=== PATIENT | male | born 1935 | race Caucasian/White ===

== ENCOUNTER 2018-11-09 13:18 | Inpatient (IN) ==
[2018-11-09 14:45] LABS: Basophils % 0.5 % (0.0-0.8); Eosinophils # 0.2 10*3/uL (0.0-0.87); Eosinophils % 1.8 % (0.00-10.9); Hematocrit 37.4 VOL% (42.0-52.0); Hemoglobin 12.4 GM/DL (14.0-18.0); Immature Granulocytes % 0.7 %; Immature Granulocytes Absolute 0.06 #; Lymphocytes # 2.1 10*3/uL (1.4-4.0); Lymphocytes % 24.1 % (21.2-54.2); Mean Corpuscular HGB Conc 33.2 GM/DL (32-36); Mean Corpuscular Hemoglobin 30 PG (27-34); Mean Corpuscular Volume 91.4 FL (87-102); Mean Platelet Volume 9.3 FL (9.6-12.0); Monocytes # 0.7 10*3/uL (0.11-0.8); Monocytes % 7.4 % (1.7-12.7); Neutrophils # 5.8 10*3/uL (1.4-7.4); Neutrophils % 65.5 % (38.7-73.9); Platelet Count 228 T/CUMM (130-400); Red Blood Count 4.09 MC/CUMM (3.8-5.5); Red Cell Distribution Width 13.5 % (9.3-17.3); White Blood Count 8.8 T/CUMM (4-12)
[2018-11-09 15:02] LABS: Calcium 8.5 MG/DL (8.5-10.1); Potassium 3.4 MMOL/L (3.5-5.1)
[2018-11-09] MEDS ORDERED: metroNIDAZOLE 500 MG TABLET PO STA (15:44)
[2018-11-09] MEDS ORDERED: ACETAMINOPHEN 325 MG TABLET PO PRN (17:33)
[2018-11-09] MEDS ORDERED: ONDANSETRON 4 MG/2 ML VIAL IV PRN (17:33)
[2018-11-09] MEDS: SODIUM CHLORIDE 0.9% 1,000 ML IV SCH (18:08)
[2018-11-09] MEDS: DOCUSATE SODIUM 100 MG CAPSULE PO SCH (21:14)
[2018-11-10] MEDS: SODIUM CHLORIDE 0.9% 1,000 ML IV SCH ×3 (01:23→18:06)
[2018-11-10 08:34] LABS: Calcium 7.8 MG/DL (8.5-10.1); Osmolality,Calculated 286.8 MOS/KG (273-304); Potassium 2.9 MMOL/L (3.5-5.1)
[2018-11-10] MEDS ORDERED: POTASSIUM CHLORIDE 20 MEQ TABLET PO ONE (08:56)
[2018-11-10] MEDS: DOCUSATE SODIUM 100 MG CAPSULE PO SCH ×2 (10:06→21:40)
[2018-11-10] MEDS: PANTOPRAZOLE 40 MG TABLET PO SCH (10:06)
[2018-11-11 05:26] LABS: Calcium 7.8 MG/DL (8.5-10.1); Osmolality,Calculated 286.7 MOS/KG (273-304); Potassium 3.2 MMOL/L (3.5-5.1)
[2018-11-11] MEDS: SODIUM CHLORIDE 0.9% 1,000 ML IV SCH ×3 (05:38→18:01)
[2018-11-11] MEDS: POTASSIUM CHLORIDE 20 MEQ TABLET PO SCH ×2 (10:20→20:45)
[2018-11-11] MEDS: DOCUSATE SODIUM 100 MG CAPSULE PO SCH ×2 (10:21→20:48)
[2018-11-11] MEDS: PANTOPRAZOLE 40 MG TABLET PO SCH (10:21)
[2018-11-11] MEDS: FLUDROCORTISONE 0.1 MG TABLET PO SCH ×2 (14:54→20:45)
[2018-11-11] MEDS: VANCOMYCIN 50 MG/ML 60 ML/BOTTLE PO SCH ×2 (14:55→18:02)
[2018-11-12] MEDS: VANCOMYCIN 50 MG/ML 60 ML/BOTTLE PO SCH ×4 (00:23→17:06)
[2018-11-12] MEDS: SODIUM CHLORIDE 0.9% 1,000 ML IV SCH (02:08)
[2018-11-12] MEDS: FLUDROCORTISONE 0.1 MG TABLET PO SCH ×3 (09:02→21:22)
[2018-11-12] MEDS: ASPIRIN EC 81 MG TABLET PO SCH (09:02)
[2018-11-12] MEDS: DUTASTERIDE 0.5 MG CAPSULE PO SCH (09:03)
[2018-11-12] MEDS: MIDODRINE 5 MG TABLET PO SCH ×3 (09:03→21:27)
[2018-11-12] MEDS: DOCUSATE SODIUM 100 MG CAPSULE PO SCH ×2 (09:03→21:22)
[2018-11-12] MEDS: POTASSIUM CHLORIDE 20 MEQ TABLET PO SCH ×2 (09:03→21:23)
[2018-11-12] MEDS: PANTOPRAZOLE 40 MG TABLET PO SCH (09:03)
[2018-11-12] MEDS: SODIUM CHLOR 0.9% KCL 20 MEQ 20 MEQ/1,000 ML BAG IV SCH ×2 (09:03→17:10)
[2018-11-12 11:41] LABS: Apearance,Urine CLEAR (Clear); Bilirubin,Urine Negative (Negative); Blood, Urine Negative (Negative); Glucose,Urine (UA) Negative (Negative); Hyaline Casts,Urine 3 /LPF (0-3); Ketones,Urine Negative (Negative); Mucus,Urine Few /LPF (Occasional); Nitrite,Urine Negative (Negative); Protein,Urine Negative; RBC,Urine <1 /HPF (0-4); Squamous Epithelial Cell,Urine Occasional /HPF (0-10); Urine Color Yellow (Yellow); Urine Specific Gravity 1.012 (1.001-1.035); Urine Urobilinogen < 2.0 EU/DL (0.2-1.0); WBC,Urine <1 /HPF (0-6)
[2018-11-13] MEDS: SODIUM CHLOR 0.9% KCL 20 MEQ 20 MEQ/1,000 ML BAG IV SCH ×2 (00:39→09:08)
[2018-11-13] MEDS: VANCOMYCIN 50 MG/ML 60 ML/BOTTLE PO SCH ×2 (00:43→05:25)
[2018-11-13 04:52] LABS: Basophils % 0.5 % (0.0-0.8); Eosinophils # 0.4 10*3/uL (0.0-0.87); Eosinophils % 5.3 % (0.00-10.9); Hematocrit 36.2 VOL% (42.0-52.0); Immature Granulocytes % 0.8 %; Immature Granulocytes Absolute 0.06 #; Lymphocytes # 2.2 10*3/uL (1.4-4.0); Lymphocytes % 27.9 % (21.2-54.2); Mean Corpuscular HGB Conc 33.1 GM/DL (32-36); Mean Corpuscular Hemoglobin 30 PG (27-34); Mean Platelet Volume 9.3 FL (9.6-12.0); Monocytes # 0.6 10*3/uL (0.11-0.8); Monocytes % 7.5 % (1.7-12.7); Neutrophils # 4.5 10*3/uL (1.4-7.4); Platelet Count 223 T/CUMM (130-400); Red Blood Count 4.02 MC/CUMM (3.8-5.5); Red Cell Distribution Width 13.2 % (9.3-17.3); White Blood Count 7.7 T/CUMM (4-12)
[2018-11-13 05:30] LABS: Albumin 2.6 G/DL (3.4-5.0); Bilirubin,Total 1.3 MG/DL (0.2-1.0); Potassium 3.5 MMOL/L (3.5-5.1); Total Protein 5.2 G/DL (6.4-8.3)
[2018-11-13 08:12] VITALS: BP 91/49
[2018-11-13] MEDS: FLUDROCORTISONE 0.1 MG TABLET PO SCH (09:14)
[2018-11-13] MEDS: ASPIRIN EC 81 MG TABLET PO SCH (09:14)
[2018-11-13] MEDS: DOCUSATE SODIUM 100 MG CAPSULE PO SCH (09:14)
[2018-11-13] MEDS: DUTASTERIDE 0.5 MG CAPSULE PO SCH (09:14)
[2018-11-13] MEDS: POTASSIUM CHLORIDE 20 MEQ TABLET PO SCH (09:15)
[2018-11-13] MEDS: PANTOPRAZOLE 40 MG TABLET PO SCH (09:15)
[2018-11-13] MEDS: MIDODRINE 5 MG TABLET PO SCH (09:15)
== END 2018-11-13 10:44 | disposition home health service (06) | DRG 373 ==
LOC: EDUNIT# → EDBD → N.ED 13:18 → N.EDINP 15:44 → N.2E 17:24
PROVIDERS: ADMIT Family Medicine; ATTEND Family Medicine

== ENCOUNTER 2019-01-01 15:54 | Inpatient (IN) ==
[2019-01-01] MEDS ORDERED: ALUM/MAG/SIMETH/LIDO VISC 1:1 30 ML BOTTLE PO ONE (16:11)
[2019-01-01] MEDS ORDERED: PANTOPRAZOLE 40 MG VIAL IV STA (16:16)
[2019-01-01] MEDS ORDERED: ONDANSETRON 4 MG/2 ML VIAL IV STA (16:16)
[2019-01-01 16:33] LABS: Basophils % 0.4 % (0.0-0.8); Eosinophils # 0.1 10*3/uL (0.0-0.87); Eosinophils % 1.3 % (0.00-10.9); Hematocrit 39.7 VOL% (42.0-52.0); Hemoglobin 13.2 GM/DL (14.0-18.0); Immature Granulocytes % 0.5 %; Immature Granulocytes Absolute 0.05 #; Lymphocytes % 21.8 % (21.2-54.2); Mean Corpuscular HGB Conc 33.2 GM/DL (32-36); Mean Corpuscular Volume 88.8 FL (87-102); Mean Platelet Volume 8.7 FL (9.6-12.0); Monocytes % 6.4 % (1.7-12.7); Neutrophils % 69.6 % (38.7-73.9); Platelet Count 242 T/CUMM (130-400); Red Blood Count 4.47 MC/CUMM (3.8-5.5); Red Cell Distribution Width 13.4 % (9.3-17.3); White Blood Count 9.1 T/CUMM (4-12)
[2019-01-01 16:52] LABS: Partial Thromboplastin Time 24.7 SECS (0-40)
[2019-01-01 16:59] LABS: Alanine Aminotransferase 15 U/L (16-61); Albumin 3.1 G/DL (3.4-5.0); Alkaline Phosphatase 188 U/L (45-117); Aspartate Amino Transferase 20 U/L (0-37); Blood Urea Nitrogen 17 MG/DL (7-18); Calcium 8.6 MG/DL (8.5-10.1); Free T4 (Free Thyroxine) 1.16 NG/DL (0.76-1.46); Glucose 93 MG/DL (74-106); Osmolality,Calculated 280.4 MOS/KG (273-304); Total Protein 5.9 G/DL (6.4-8.3); Troponin I < 0.015 NG/ML (0.00-0.045)
[2019-01-01] MEDS ORDERED: POTASSIUM BICARB EFFERVESCENT 25 MEQ TABLET PO ONE (17:35)
[2019-01-01] MEDS ORDERED: ONDANSETRON 4 MG/2 ML VIAL IV PRN (18:47)
[2019-01-01] MEDS ORDERED: DUTASTERIDE 0.5 MG CAPSULE PO SCH (21:00)
[2019-01-01] MEDS: MIDODRINE 5 MG TABLET PO SCH (21:46)
[2019-01-01] MEDS: CARBIDOPA/LEVODOPA 25-100 MG TABLET PO SCH (21:46)
[2019-01-01] MEDS: FLUDROCORTISONE 0.1 MG TABLET PO SCH (21:46)
[2019-01-02] MEDS: VANCOMYCIN 50 MG/ML 60 ML/BOTTLE PO SCH ×4 (00:10→17:28)
[2019-01-02 07:28] LABS: Amorphous Crystals,Urine Few /HPF (Few); Apearance,Urine CLEAR (Clear); Bacteria,Urine Occasional /HPF (Few); Bilirubin,Urine Negative (Negative); Blood, Urine Negative (Negative); Glucose,Urine (UA) Negative (Negative); Hyaline Casts,Urine 5 /LPF (0-3); Ketones,Urine 5 mg/dL (Negative); Mucus,Urine Many /LPF (Occasional); Nitrite,Urine Negative (Negative); Protein,Urine Negative; RBC,Urine 1 /HPF (0-4); Squamous Epithelial Cell,Urine Occasional /HPF (0-10); Urine Color Yellow (Yellow); Urine Specific Gravity 1.017 (1.001-1.035); WBC,Urine 4 /HPF (0-6)
[2019-01-02 07:31] LABS: Barbiturates Screen,Urine Negative (Negative); Benzodiazepines Screen,Urine Negative (Negative); Cannabinoid Screen,Urine Negative (Negative); Opiate Screen,Urine Negative (Negative); Phencyclidine Screen,Urine Negative (Negative)
[2019-01-02] MEDS: CARBIDOPA/LEVODOPA 25-100 MG TABLET PO SCH ×3 (08:46→20:48)
[2019-01-02] MEDS: MIDODRINE 5 MG TABLET PO SCH ×4 (08:46→20:48)
[2019-01-02] MEDS: MAGNESIUM OXIDE 400 MG TABLET PO SCH ×2 (08:46→20:48)
[2019-01-02] MEDS: FLUDROCORTISONE 0.1 MG TABLET PO SCH ×3 (08:46→20:47)
[2019-01-02] MEDS: ASPIRIN EC 81 MG TABLET PO SCH (08:46)
[2019-01-02] MEDS: POTASSIUM CHLORIDE 20 MEQ TABLET PO SCH ×2 (08:46→20:48)
[2019-01-02] MEDS: PANTOPRAZOLE 40 MG TABLET PO SCH (08:46)
[2019-01-03] MEDS: VANCOMYCIN 50 MG/ML 60 ML/BOTTLE PO SCH ×4 (00:40→17:53)
[2019-01-03 02:24] LABS: Basophils % 0.3 % (0.0-0.8); Eosinophils # 0.2 10*3/uL (0.0-0.87); Eosinophils % 1.4 % (0.00-10.9); Hematocrit 35.8 VOL% (42.0-52.0); Hemoglobin 12.1 GM/DL (14.0-18.0); Immature Granulocytes % 0.6 %; Immature Granulocytes Absolute 0.06 #; Lymphocytes % 18.2 % (21.2-54.2); Mean Corpuscular HGB Conc 33.8 GM/DL (32-36); Mean Corpuscular Volume 88.6 FL (87-102); Mean Platelet Volume 9.1 FL (9.6-12.0); Monocytes % 6.8 % (1.7-12.7); Neutrophils % 72.7 % (38.7-73.9); Platelet Count 223 T/CUMM (130-400); Red Blood Count 4.04 MC/CUMM (3.8-5.5); Red Cell Distribution Width 13.6 % (9.3-17.3); White Blood Count 10.9 T/CUMM (4-12)
[2019-01-03 02:50] LABS: Calcium 7.9 MG/DL (8.5-10.1); Osmolality,Calculated 282.4 MOS/KG (273-304)
[2019-01-03] MEDS: ASPIRIN EC 81 MG TABLET PO SCH (09:36)
[2019-01-03] MEDS: FLUDROCORTISONE 0.1 MG TABLET PO SCH ×3 (09:36→23:39)
[2019-01-03] MEDS: POTASSIUM CHLORIDE 20 MEQ TABLET PO SCH ×2 (09:37→23:39)
[2019-01-03] MEDS: MAGNESIUM OXIDE 400 MG TABLET PO SCH ×2 (09:37→23:40)
[2019-01-03] MEDS: POTASSIUM CHLORIDE RIDER 10 MEQ in PREMIX 1 EACH IV PRN ×5 (09:37→17:54)
[2019-01-03] MEDS: PANTOPRAZOLE 40 MG TABLET PO SCH (09:37)
[2019-01-03] MEDS: CARBIDOPA/LEVODOPA 25-100 MG TABLET PO SCH ×3 (09:37→23:41)
[2019-01-03] MEDS: MIDODRINE 5 MG TABLET PO SCH ×4 (09:38→23:41)
[2019-01-04] MEDS: VANCOMYCIN 50 MG/ML 60 ML/BOTTLE PO SCH ×3 (01:16→13:02)
[2019-01-04 04:39] LABS: Basophils # 0.1 10*3/uL (0.0-0.2); Basophils % 0.6 % (0.0-0.8); Eosinophils # 0.2 10*3/uL (0.0-0.87); Eosinophils % 2.6 % (0.00-10.9); Hematocrit 36.5 VOL% (42.0-52.0); Hemoglobin 12.1 GM/DL (14.0-18.0); Immature Granulocytes % 0.6 %; Immature Granulocytes Absolute 0.05 #; Lymphocytes # 1.9 10*3/uL (1.4-4.0); Lymphocytes % 22.6 % (21.2-54.2); Mean Corpuscular HGB Conc 33.2 GM/DL (32-36); Mean Corpuscular Volume 90.3 FL (87-102); Monocytes % 6.8 % (1.7-12.7); Neutrophils % 66.8 % (38.7-73.9); Platelet Count 207 T/CUMM (130-400); Red Blood Count 4.04 MC/CUMM (3.8-5.5); Red Cell Distribution Width 13.5 % (9.3-17.3); White Blood Count 8.4 T/CUMM (4-12)
[2019-01-04 04:59] LABS: Osmolality,Calculated 283.1 MOS/KG (273-304)
[2019-01-04] MEDS: POTASSIUM CHLORIDE RIDER 10 MEQ in PREMIX 1 EACH IV PRN (06:30)
[2019-01-04 08:54] VITALS: BP 109/67
[2019-01-04] MEDS: POTASSIUM CHLORIDE 20 MEQ TABLET PO SCH (09:14)
[2019-01-04] MEDS: MAGNESIUM OXIDE 400 MG TABLET PO SCH (09:14)
[2019-01-04] MEDS: MIDODRINE 5 MG TABLET PO SCH (09:15)
[2019-01-04] MEDS: FLUDROCORTISONE 0.1 MG TABLET PO SCH (09:15)
[2019-01-04] MEDS: CARBIDOPA/LEVODOPA 25-100 MG TABLET PO SCH (10:14)
[2019-01-04] MEDS: ASPIRIN EC 81 MG TABLET PO SCH (10:14)
[2019-01-04] MEDS: PANTOPRAZOLE 40 MG TABLET PO SCH (10:15)
== END 2019-01-04 12:04 | disposition home or self-care (01) | DRG 57 ==
LOC: EDBD → EDUNIT# → N.ED 15:54 → N.EDINP 18:47 → N.TELEN 19:24
PROVIDERS: ADMIT Family Medicine; ATTEND Family Medicine

== ENCOUNTER 2019-01-28 11:28 | Inpatient (IN) ==
[2019-01-28] MEDS ORDERED: SODIUM CHLORIDE 0.9% 500 ML IV STA (12:09)
[2019-01-28 14:08] LABS: Basophils % 0.4 % (0.0-0.8); Eosinophils # 0.2 10*3/uL (0.0-0.87); Eosinophils % 1.6 % (0.00-10.9); Hematocrit 36.5 VOL% (42.0-52.0); Hemoglobin 11.9 GM/DL (14.0-18.0); Immature Granulocytes % 0.9 %; Immature Granulocytes Absolute 0.08 #; Lymphocytes # 2.2 10*3/uL (1.4-4.0); Lymphocytes % 23.7 % (21.2-54.2); Mean Corpuscular HGB Conc 32.6 GM/DL (32-36); Mean Platelet Volume 8.9 FL (9.6-12.0); Monocytes % 6.5 % (1.7-12.7); Neutrophils % 66.9 % (38.7-73.9); Platelet Count 240 T/CUMM (130-400); Red Blood Count 4.01 MC/CUMM (3.8-5.5); Red Cell Distribution Width 13.6 % (9.3-17.3); White Blood Count 9.4 T/CUMM (4-12)
[2019-01-28 14:30] LABS: Alanine Aminotransferase < 9 U/L (16-61); Albumin 2.7 G/DL (3.4-5.0); Alkaline Phosphatase 121 U/L (45-117); Aspartate Amino Transferase 11 U/L (0-37); Blood Urea Nitrogen 17 MG/DL (7-18); Calcium 8.3 MG/DL (8.5-10.1); Glucose 85 MG/DL (74-106); Osmolality,Calculated 277.5 MOS/KG (273-304)
[2019-01-28 14:45] LABS: Apearance,Urine Slightly Hazy (Clear); Bacteria,Urine Occasional /HPF (Few); Bilirubin,Urine Negative (Negative); Blood, Urine Negative (Negative); Glucose,Urine (UA) Negative (Negative); Hyaline Casts,Urine 4 /LPF (0-3); Ketones,Urine Negative (Negative); Mucus,Urine Occasional /LPF (Occasional); Nitrite,Urine Negative (Negative); Protein,Urine Negative; RBC,Urine 6 /HPF (0-4); Squamous Epithelial Cell,Urine Occasional /HPF (0-10); Urine Color Amber (Yellow); Urine Specific Gravity 1.014 (1.001-1.035); Urine Urobilinogen < 2.0 EU/DL (0.2-1.0); WBC,Urine 24 /HPF (0-6)
[2019-01-28] MEDS ORDERED: cefTRIAXone 1,000 MG in SODIUM CHLORIDE 0.9% 100 ML IV STA (15:13)
[2019-01-28] MEDS ORDERED: MORPHINE 4 MG/1 ML VIAL IV PRN (16:47)
[2019-01-28] MEDS ORDERED: ACETAMINOPHEN 325 MG TABLET PO PRN (16:47)
[2019-01-28] MEDS ORDERED: ONDANSETRON 4 MG/2 ML VIAL IV PRN (16:47)
[2019-01-28] MEDS: SODIUM CHLORIDE 0.9% 1,000 ML IV SCH (16:56)
[2019-01-28] MEDS: DOCUSATE SODIUM 100 MG CAPSULE PO SCH (20:45)
[2019-01-29 02:00] LABS: Apearance,Urine Slightly Hazy (Clear); Bacteria,Urine Occasional /HPF (Few); Bilirubin,Urine Negative (Negative); Blood, Urine Small mg/dL (Negative); Glucose,Urine (UA) Negative (Negative); Hyaline Casts,Urine 4 /LPF (0-3); Ketones,Urine Negative (Negative); Mucus,Urine Few /LPF (Occasional); Nitrite,Urine Positive (Negative); Protein,Urine Negative; RBC,Urine 8 /HPF (0-4); Squamous Epithelial Cell,Urine Occasional /HPF (0-10); Urine Color Yellow (Yellow); Urine Specific Gravity 1.014 (1.001-1.035); Urine Urobilinogen < 2.0 EU/DL (0.2-1.0); WBC,Urine 149 /HPF (0-6)
[2019-01-29 04:37] LABS: Basophils # 0.1 10*3/uL (0.0-0.2); Basophils % 0.8 % (0.0-0.8); Eosinophils # 0.2 10*3/uL (0.0-0.87); Eosinophils % 1.9 % (0.00-10.9); Hematocrit 34.3 VOL% (42.0-52.0); Hemoglobin 11.4 GM/DL (14.0-18.0); Immature Granulocytes % 0.8 %; Immature Granulocytes Absolute 0.06 #; Lymphocytes # 2.1 10*3/uL (1.4-4.0); Lymphocytes % 26.8 % (21.2-54.2); Mean Corpuscular HGB Conc 33.2 GM/DL (32-36); Mean Corpuscular Volume 90.5 FL (87-102); Mean Platelet Volume 9.1 FL (9.6-12.0); Neutrophils % 63.7 % (38.7-73.9); Platelet Count 215 T/CUMM (130-400); Red Blood Count 3.79 MC/CUMM (3.8-5.5); Red Cell Distribution Width 13.8 % (9.3-17.3)
[2019-01-29 04:56] LABS: Albumin 2.5 G/DL (3.4-5.0); Bilirubin,Total 0.9 MG/DL (0.2-1.0); Calcium 8.2 MG/DL (8.5-10.1); Osmolality,Calculated 278.4 MOS/KG (273-304); Risk Ratio 4.52; VLDL CHOLESTEROL 20.8 MG/DL
[2019-01-29] MEDS: SODIUM CHLORIDE 0.9% 1,000 ML IV SCH ×2 (05:49→19:23)
[2019-01-29] MEDS ORDERED: CARBIDOPA/LEVODOPA 25-100 MG TABLET PO SCH (09:00)
[2019-01-29] MEDS: FLUDROCORTISONE 0.1 MG TABLET PO SCH (09:56)
[2019-01-29] MEDS: MIDODRINE 5 MG TABLET PO SCH ×3 (09:56→21:24)
[2019-01-29] MEDS: DUTASTERIDE 0.5 MG CAPSULE PO SCH (09:56)
[2019-01-29] MEDS: CARBIDOPA/LEVODOPA 25-100 MG TABLET PO SCH ×4 (09:57→20:47)
[2019-01-29] MEDS: cefTRIAXone 1,000 MG in SYRINGE 1 EACH IV SCH (09:57)
[2019-01-29] MEDS: PANTOPRAZOLE 40 MG TABLET PO SCH (09:57)
[2019-01-29] MEDS: DOCUSATE SODIUM 100 MG CAPSULE PO SCH ×2 (09:57→20:47)
[2019-01-29] MEDS: ZINC OXIDE PASTE 113 GM TUBE TOP SCH ×2 (18:07→20:47)
[2019-01-29] MEDS: POTASSIUM CHLORIDE 20 MEQ TABLET PO SCH (20:47)
[2019-01-30 05:30] LABS: Basophils % 0.4 % (0.0-0.8); Eosinophils # 0.2 10*3/uL (0.0-0.87); Eosinophils % 2.6 % (0.00-10.9); Hematocrit 34.7 VOL% (42.0-52.0); Hemoglobin 11.3 GM/DL (14.0-18.0); Immature Granulocytes % 0.7 %; Immature Granulocytes Absolute 0.05 #; Lymphocytes % 26.8 % (21.2-54.2); Mean Corpuscular HGB Conc 32.6 GM/DL (32-36); Mean Corpuscular Volume 90.4 FL (87-102); Monocytes % 6.3 % (1.7-12.7); Neutrophils % 63.2 % (38.7-73.9); Platelet Count 233 T/CUMM (130-400); Red Blood Count 3.84 MC/CUMM (3.8-5.5); Red Cell Distribution Width 13.9 % (9.3-17.3); White Blood Count 7.4 T/CUMM (4-12)
[2019-01-30 06:02] LABS: Osmolality,Calculated 276.4 MOS/KG (273-304)
[2019-01-30 06:07] LABS: Alanine Aminotransferase < 6 U/L (16-61); Albumin 2.4 G/DL (3.4-5.0); Alkaline Phosphatase 110 U/L (45-117); Aspartate Amino Transferase 13 U/L (0-37); Blood Urea Nitrogen 10 MG/DL (7-18); Glucose 81 MG/DL (74-106); Osmolality,Calculated 276.4 MOS/KG (273-304); Total Protein 4.9 G/DL (6.4-8.3)
[2019-01-30] MEDS: cefTRIAXone 1,000 MG in SYRINGE 1 EACH IV SCH (08:41)
[2019-01-30] MEDS: DOCUSATE SODIUM 100 MG CAPSULE PO SCH ×2 (08:43→22:37)
[2019-01-30] MEDS: FLUDROCORTISONE 0.1 MG TABLET PO SCH (08:44)
[2019-01-30] MEDS: MIDODRINE 5 MG TABLET PO SCH ×3 (08:44→22:37)
[2019-01-30] MEDS: POTASSIUM CHLORIDE 20 MEQ TABLET PO SCH ×2 (08:44→22:37)
[2019-01-30] MEDS: CARBIDOPA/LEVODOPA 25-100 MG TABLET PO SCH ×4 (08:45→22:38)
[2019-01-30] MEDS: ASPIRIN EC 81 MG TABLET PO SCH (08:45)
[2019-01-30] MEDS: DUTASTERIDE 0.5 MG CAPSULE PO SCH (08:45)
[2019-01-30] MEDS: PANTOPRAZOLE 40 MG TABLET PO SCH (08:46)
[2019-01-30] MEDS: SODIUM CHLORIDE 0.9% 1,000 ML IV SCH ×2 (09:01→22:39)
[2019-01-30] MEDS: ZINC OXIDE PASTE 113 GM TUBE TOP SCH ×2 (15:35→22:39)
[2019-01-31 04:31] LABS: Basophils % 0.5 % (0.0-0.8); Eosinophils # 0.2 10*3/uL (0.0-0.87); Eosinophils % 2.5 % (0.00-10.9); Hematocrit 36.8 VOL% (42.0-52.0); Hemoglobin 12.1 GM/DL (14.0-18.0); Immature Granulocytes % 0.6 %; Immature Granulocytes Absolute 0.05 #; Lymphocytes % 22.4 % (21.2-54.2); Mean Corpuscular HGB Conc 32.9 GM/DL (32-36); Mean Corpuscular Volume 90.4 FL (87-102); Mean Platelet Volume 8.9 FL (9.6-12.0); Monocytes % 5.2 % (1.7-12.7); Neutrophils % 68.8 % (38.7-73.9); Platelet Count 245 T/CUMM (130-400); Red Blood Count 4.07 MC/CUMM (3.8-5.5); Red Cell Distribution Width 13.7 % (9.3-17.3); White Blood Count 8.9 T/CUMM (4-12)
[2019-01-31] MEDS ORDERED: LACTATED RINGERS 1,000 ML IV SCH (08:00)
[2019-01-31] MEDS ORDERED: LIDOCAINE 2% 5 ML VIAL ONE (10:00)
[2019-01-31] MEDS ORDERED: PROPOFOL 200 MG/20 ML VIAL IV ONE (10:00)
[2019-01-31] MEDS: cefTRIAXone 1,000 MG in SYRINGE 1 EACH IV SCH (12:06)
[2019-01-31] MEDS: ZINC OXIDE PASTE 113 GM TUBE TOP SCH ×2 (12:06→23:05)
[2019-01-31] MEDS: PANTOPRAZOLE 40 MG TABLET PO SCH (13:12)
[2019-01-31] MEDS: DOCUSATE SODIUM 100 MG CAPSULE PO SCH ×2 (13:12→23:05)
[2019-01-31] MEDS: DUTASTERIDE 0.5 MG CAPSULE PO SCH (13:12)
[2019-01-31] MEDS: FLUDROCORTISONE 0.1 MG TABLET PO SCH (13:12)
[2019-01-31] MEDS: POTASSIUM CHLORIDE 20 MEQ TABLET PO SCH ×2 (13:12→23:05)
[2019-01-31] MEDS: ASPIRIN EC 81 MG TABLET PO SCH (13:12)
[2019-01-31] MEDS: MIDODRINE 5 MG TABLET PO SCH ×3 (13:12→23:04)
[2019-01-31] MEDS: CARBIDOPA/LEVODOPA 25-100 MG TABLET PO SCH ×4 (13:13→23:05)
[2019-02-01 05:49] LABS: Basophils # 0.1 10*3/uL (0.0-0.2); Basophils % 0.5 % (0.0-0.8); Eosinophils # 0.2 10*3/uL (0.0-0.87); Eosinophils % 1.9 % (0.00-10.9); Hematocrit 38.1 VOL% (42.0-52.0); Hemoglobin 12.5 GM/DL (14.0-18.0); Immature Granulocytes % 0.5 %; Immature Granulocytes Absolute 0.05 #; Lymphocytes # 1.8 10*3/uL (1.4-4.0); Lymphocytes % 18.4 % (21.2-54.2); Mean Corpuscular HGB Conc 32.8 GM/DL (32-36); Mean Corpuscular Volume 90.7 FL (87-102); Mean Platelet Volume 8.8 FL (9.6-12.0); Monocytes % 4.2 % (1.7-12.7); Neutrophils % 74.5 % (38.7-73.9); Platelet Count 243 T/CUMM (130-400); Red Cell Distribution Width 13.8 % (9.3-17.3); White Blood Count 9.6 T/CUMM (4-12)
[2019-02-01 06:16] LABS: Alanine Aminotransferase < 6 U/L (16-61); Albumin 2.6 G/DL (3.4-5.0); Alkaline Phosphatase 131 U/L (45-117); Aspartate Amino Transferase 16 U/L (0-37); Blood Urea Nitrogen 8 MG/DL (7-18); Calcium 8.3 MG/DL (8.5-10.1); Glucose 78 MG/DL (74-106); Osmolality,Calculated 271.7 MOS/KG (273-304); Total Protein 5.4 G/DL (6.4-8.3)
[2019-02-01] MEDS: POTASSIUM CHLORIDE 20 MEQ TABLET PO SCH ×2 (09:30→20:58)
[2019-02-01] MEDS: FLUDROCORTISONE 0.1 MG TABLET PO SCH (09:30)
[2019-02-01] MEDS: PANTOPRAZOLE 40 MG TABLET PO SCH (09:30)
[2019-02-01] MEDS: MIDODRINE 5 MG TABLET PO SCH ×3 (09:31→20:58)
[2019-02-01] MEDS: DOCUSATE SODIUM 100 MG CAPSULE PO SCH ×2 (09:31→20:58)
[2019-02-01] MEDS: DUTASTERIDE 0.5 MG CAPSULE PO SCH (09:31)
[2019-02-01] MEDS: CARBIDOPA/LEVODOPA 25-100 MG TABLET PO SCH ×4 (09:31→20:58)
[2019-02-01] MEDS: cefTRIAXone 1,000 MG in SYRINGE 1 EACH IV SCH (09:31)
[2019-02-01] MEDS: ASPIRIN EC 81 MG TABLET PO SCH (09:31)
[2019-02-01] MEDS: ZINC OXIDE PASTE 113 GM TUBE TOP SCH ×2 (17:05→21:08)
[2019-02-02] MEDS: SODIUM CHLORIDE 0.9% 1,000 ML IV SCH ×3 (03:45→14:07)
[2019-02-02 06:15] LABS: Basophils % 0.4 % (0.0-0.8); Eosinophils # 0.2 10*3/uL (0.0-0.87); Eosinophils % 1.9 % (0.00-10.9); Hematocrit 34.2 VOL% (42.0-52.0); Hemoglobin 11.1 GM/DL (14.0-18.0); Immature Granulocytes % 0.6 %; Immature Granulocytes Absolute 0.05 #; Lymphocytes # 1.7 10*3/uL (1.4-4.0); Lymphocytes % 19.3 % (21.2-54.2); Mean Corpuscular HGB Conc 32.5 GM/DL (32-36); Mean Platelet Volume 9.1 FL (9.6-12.0); Monocytes % 4.9 % (1.7-12.7); Neutrophils % 72.9 % (38.7-73.9); Platelet Count 257 T/CUMM (130-400); Red Blood Count 3.76 MC/CUMM (3.8-5.5)
[2019-02-02 06:26] LABS: Alanine Aminotransferase < 9 U/L (16-61); Albumin 2.3 G/DL (3.4-5.0); Alkaline Phosphatase 112 U/L (45-117); Aspartate Amino Transferase 16 U/L (0-37); Blood Urea Nitrogen 10 MG/DL (7-18); Calcium 7.9 MG/DL (8.5-10.1); Glucose 73 MG/DL (74-106); Osmolality,Calculated 272.7 MOS/KG (273-304); Total Protein 4.8 G/DL (6.4-8.3)
[2019-02-02] MEDS: DOCUSATE SODIUM 100 MG CAPSULE PO SCH ×2 (10:11→21:16)
[2019-02-02] MEDS: MIDODRINE 5 MG TABLET PO SCH ×3 (10:11→21:16)
[2019-02-02] MEDS: PANTOPRAZOLE 40 MG TABLET PO SCH (10:11)
[2019-02-02] MEDS: ASPIRIN EC 81 MG TABLET PO SCH (10:11)
[2019-02-02] MEDS: POTASSIUM CHLORIDE 20 MEQ TABLET PO SCH ×2 (10:11→21:16)
[2019-02-02] MEDS: DUTASTERIDE 0.5 MG CAPSULE PO SCH (10:11)
[2019-02-02] MEDS: FLUDROCORTISONE 0.1 MG TABLET PO SCH (10:11)
[2019-02-02] MEDS: ZINC OXIDE PASTE 113 GM TUBE TOP SCH ×2 (10:12→21:19)
[2019-02-02] MEDS: cefTRIAXone 1,000 MG in SYRINGE 1 EACH IV SCH (10:12)
[2019-02-02] MEDS: CARBIDOPA/LEVODOPA 25-100 MG TABLET PO SCH ×4 (10:12→21:16)
[2019-02-03 02:25] LABS: Basophils % 0.4 % (0.0-0.8); Eosinophils # 0.2 10*3/uL (0.0-0.87); Eosinophils % 2.6 % (0.00-10.9); Hematocrit 34.8 VOL% (42.0-52.0); Hemoglobin 11.5 GM/DL (14.0-18.0); Immature Granulocytes % 0.8 %; Immature Granulocytes Absolute 0.06 #; Lymphocytes # 1.9 10*3/uL (1.4-4.0); Mean Corpuscular Volume 90.2 FL (87-102); Mean Platelet Volume 9.2 FL (9.6-12.0); Monocytes % 6.8 % (1.7-12.7); Neutrophils % 64.4 % (38.7-73.9); Platelet Count 260 T/CUMM (130-400); Red Blood Count 3.86 MC/CUMM (3.8-5.5); Red Cell Distribution Width 14.1 % (9.3-17.3); White Blood Count 7.8 T/CUMM (4-12)
[2019-02-03] MEDS: SODIUM CHLORIDE 0.9% 1,000 ML IV SCH (03:30)
[2019-02-03] MEDS: cefTRIAXone 1,000 MG in SYRINGE 1 EACH IV SCH (08:21)
[2019-02-03] MEDS: DUTASTERIDE 0.5 MG CAPSULE PO SCH (08:22)
[2019-02-03] MEDS: FLUDROCORTISONE 0.1 MG TABLET PO SCH (08:22)
[2019-02-03] MEDS: POTASSIUM CHLORIDE 20 MEQ TABLET PO SCH (08:22)
[2019-02-03] MEDS: MIDODRINE 5 MG TABLET PO SCH (08:22)
[2019-02-03] MEDS: DOCUSATE SODIUM 100 MG CAPSULE PO SCH (08:23)
[2019-02-03] MEDS: CARBIDOPA/LEVODOPA 25-100 MG TABLET PO SCH (08:23)
[2019-02-03] MEDS: PANTOPRAZOLE 40 MG TABLET PO SCH (08:23)
[2019-02-03] MEDS: ASPIRIN EC 81 MG TABLET PO SCH (08:23)
[2019-02-03 08:44] VITALS: BP 91/58
[2019-02-03] MEDS: ZINC OXIDE PASTE 113 GM TUBE TOP SCH (09:37)
== END 2019-02-03 10:45 | disposition home or self-care (01) | DRG 57 ==
LOC: EDBD → EDUNIT# → N.ED 11:28 → N.EDINP 15:17 → N.2E 16:45
PROVIDERS: ADMIT Family Medicine; ATTEND Family Medicine

== ENCOUNTER 2019-03-19 19:46 | Inpatient (IN) ==
[2019-03-19] MEDS ORDERED: SODIUM CHLORIDE 0.9% 1,000 ML IV STA (20:36)
[2019-03-19 20:47] LABS: Basophils % 0.2 % (0.0-0.8); Eosinophils # 0.1 10*3/uL (0.0-0.87); Eosinophils % 1.5 % (0.00-10.9); Hematocrit 28.8 VOL% (42.0-52.0); Hemoglobin 9.7 GM/DL (14.0-18.0); Immature Granulocytes % 0.8 %; Immature Granulocytes Absolute 0.05 #; Lymphocytes # 1.1 10*3/uL (1.4-4.0); Mean Corpuscular HGB Conc 33.7 GM/DL (32-36); Mean Corpuscular Volume 86.5 FL (87-102); Mean Platelet Volume 8.9 FL (9.6-12.0); Neutrophils % 74.5 % (38.7-73.9); Platelet Count 169 T/CUMM (130-400); Red Blood Count 3.33 MC/CUMM (3.8-5.5); Red Cell Distribution Width 14.4 % (9.3-17.3); White Blood Count 6.5 T/CUMM (4-12)
[2019-03-19 20:49] LABS: INR 1.1; PT Patient Result 11.6 SECS
[2019-03-19 21:01] LABS: Alanine Aminotransferase 15 U/L (16-61); Albumin 2.1 G/DL (3.4-5.0); Alkaline Phosphatase 114 U/L (45-117); Aspartate Amino Transferase 24 U/L (0-37); Blood Urea Nitrogen 16 MG/DL (7-18); Calcium 7.6 MG/DL (8.5-10.1); Glucose 76 MG/DL (74-106); Osmolality,Calculated 272.8 MOS/KG (273-304); Total Protein 4.8 G/DL (6.4-8.3); Troponin I < 0.015 NG/ML (0.00-0.045)
[2019-03-19 21:06] LABS: Platelet Estimate Adequate
[2019-03-19] MEDS ORDERED: POTASSIUM BICARB EFFERVESCENT 25 MEQ TABLET PO ONE (21:24)
[2019-03-20 00:39] LABS: Apearance,Urine CLEAR (Clear); Bilirubin,Urine Negative (Negative); Blood, Urine Negative (Negative); Glucose,Urine (UA) Negative (Negative); Ketones,Urine 20 mg/dL (Negative); Mucus,Urine Many /LPF (Occasional); Nitrite,Urine Negative (Negative); Protein,Urine Negative; RBC,Urine 8 /HPF (0-4); Urine Color Amber (Yellow); Urine Specific Gravity 1.018 (1.001-1.035); WBC,Urine 6 /HPF (0-6)
[2019-03-20] MEDS ORDERED: ONDANSETRON 4 MG/2 ML VIAL IV PRN (01:04)
[2019-03-20] MEDS ORDERED: SODIUM CHLORIDE 0.9% 1,000 ML IV SCH (01:04)
[2019-03-20] MEDS ORDERED: ACETAMINOPHEN 325 MG TABLET PO PRN (01:04)
[2019-03-20] MEDS ORDERED: LACTULOSE 20 GM/30 ML UDCUP PO PRN (01:04)
[2019-03-20 06:02] LABS: Basophils % 0.2 % (0.0-0.8); Eosinophils % 0.6 % (0.00-10.9); Hematocrit 27.3 VOL% (42.0-52.0); Hemoglobin 9.1 GM/DL (14.0-18.0); Immature Granulocytes % 0.6 %; Immature Granulocytes Absolute 0.04 #; Lymphocytes # 1.2 10*3/uL (1.4-4.0); Lymphocytes % 18.9 % (21.2-54.2); Mean Corpuscular HGB Conc 33.3 GM/DL (32-36); Mean Corpuscular Volume 87.2 FL (87-102); Mean Platelet Volume 8.5 FL (9.6-12.0); Neutrophils % 73.7 % (38.7-73.9); Platelet Count 144 T/CUMM (130-400); Red Blood Count 3.13 MC/CUMM (3.8-5.5); Red Cell Distribution Width 14.6 % (9.3-17.3); White Blood Count 6.3 T/CUMM (4-12)
[2019-03-20 06:32] LABS: Bilirubin,Total 2.1 MG/DL (0.2-1.0); Calcium 7.8 MG/DL (8.5-10.1); Osmolality,Calculated 276.5 MOS/KG (273-304); Risk Ratio 4.38; Total Protein 4.5 G/DL (6.4-8.3); VLDL CHOLESTEROL 16.4 MG/DL
[2019-03-20] MEDS ORDERED: HEPARIN LOCK FLUSH 500 UNIT/5 ML SYRINGE IV PRN (07:17)
[2019-03-20] MEDS: POTASSIUM CHLORIDE RIDER 10 MEQ in PREMIX 1 EACH IV SCH ×4 (07:59→11:38)
[2019-03-20] MEDS: HEPARIN LOCK FLUSH 500 UNIT/5 ML SYRINGE IV SCH ×2 (08:00→21:01)
[2019-03-20] MEDS: SODIUM CHLOR 0.9% KCL 20 MEQ 20 MEQ/1,000 ML BAG IV SCH ×2 (08:00→20:45)
[2019-03-20] MEDS: POTASSIUM CHLORIDE 20 MEQ/15 ML UDCUP PO SCH ×2 (12:41→21:03)
[2019-03-20] MEDS: MIDODRINE 5 MG TABLET PO SCH ×3 (12:41→20:57)
[2019-03-20] MEDS: CARBIDOPA/LEVODOPA 25-100 MG TABLET PO SCH ×3 (12:41→20:57)
[2019-03-20] MEDS: FLUDROCORTISONE 0.1 MG TABLET PO SCH (12:41)
[2019-03-20] MEDS: ASPIRIN EC 81 MG TABLET PO SCH (12:41)
[2019-03-20] MEDS: DUTASTERIDE 0.5 MG CAPSULE PO SCH (12:41)
[2019-03-20] MEDS: DOCUSATE SODIUM 100 MG CAPSULE PO SCH ×2 (12:41→20:57)
[2019-03-20] MEDS: PANTOPRAZOLE 40 MG TABLET PO SCH (12:41)
[2019-03-21] MEDS: SODIUM CHLOR 0.9% KCL 20 MEQ 20 MEQ/1,000 ML BAG IV SCH (04:52)
[2019-03-21 05:02] LABS: Eosinophils % 0.3 % (0.00-10.9); Hematocrit 27.9 VOL% (42.0-52.0); Hemoglobin 9.2 GM/DL (14.0-18.0); Immature Granulocytes % 0.3 %; Immature Granulocytes Absolute 0.01 #; Lymphocytes # 0.1 10*3/uL (1.4-4.0); Lymphocytes % 3.5 % (21.2-54.2); Monocytes % 0.5 % (1.7-12.7); NRBC # 0.03 10*3/uL; Neutrophils % 95.4 % (38.7-73.9); Platelet Count 136 T/CUMM (130-400); Red Blood Count 3.17 MC/CUMM (3.8-5.5); Red Cell Distribution Width 14.7 % (9.3-17.3); White Blood Count 3.8 T/CUMM (4-12)
[2019-03-21 05:40] LABS: Alanine Aminotransferase < 6 U/L (16-61); Albumin 1.9 G/DL (3.4-5.0); Alkaline Phosphatase 124 U/L (45-117); Aspartate Amino Transferase 27 U/L (0-37); Blood Urea Nitrogen 15 MG/DL (7-18); Calcium 7.6 MG/DL (8.5-10.1); Glucose 65 MG/DL (74-106); Osmolality,Calculated 279.3 MOS/KG (273-304); Total Protein 4.2 G/DL (6.4-8.3)
[2019-03-21 06:04] LABS: Band Neutrophils 1 % (0-10); Lymphocytes 2 % (20-55); Nucleated Red Blood Cells 3 (0-5); Segmented Neutrophils 97 % (50-85); Total Cells Counted 100
[2019-03-21 06:05] LABS: Anisocytosis Slight; Microcytosis 1+; Platelet Estimate Adequate
[2019-03-21] MEDS: PANTOPRAZOLE 40 MG TABLET PO SCH (08:30)
[2019-03-21] MEDS: DUTASTERIDE 0.5 MG CAPSULE PO SCH (08:31)
[2019-03-21] MEDS: MIDODRINE 5 MG TABLET PO SCH ×3 (08:31→20:31)
[2019-03-21] MEDS: CARBIDOPA/LEVODOPA 25-100 MG TABLET PO SCH ×3 (08:32→20:30)
[2019-03-21] MEDS: FLUDROCORTISONE 0.1 MG TABLET PO SCH (08:33)
[2019-03-21] MEDS: ASPIRIN EC 81 MG TABLET PO SCH (08:34)
[2019-03-21] MEDS: DOCUSATE SODIUM 100 MG CAPSULE PO SCH ×2 (08:35→20:31)
[2019-03-21] MEDS: POTASSIUM CHLORIDE RIDER 10 MEQ in PREMIX 1 EACH IV SCH ×6 (10:26→18:44)
[2019-03-21] MEDS: DEXT 5% NACL 0.45% KCL 40 MEQ 40 MEQ/1,000 ML BAG IV SCH ×2 (10:31→18:43)
[2019-03-21] MEDS: HEPARIN LOCK FLUSH 500 UNIT/5 ML SYRINGE IV SCH ×2 (10:52→20:32)
[2019-03-22] MEDS: DEXT 5% NACL 0.45% KCL 40 MEQ 40 MEQ/1,000 ML BAG IV SCH ×3 (01:35→06:22)
[2019-03-22 05:27] LABS: Basophils % 0.1 % (0.0-0.8); Eosinophils # 0.1 10*3/uL (0.0-0.87); Eosinophils % 0.7 % (0.00-10.9); Hematocrit 25.3 VOL% (42.0-52.0); Hemoglobin 8.4 GM/DL (14.0-18.0); Immature Granulocytes % 0.9 %; Immature Granulocytes Absolute 0.11 #; Lymphocytes # 1.1 10*3/uL (1.4-4.0); Lymphocytes % 8.9 % (21.2-54.2); Mean Corpuscular HGB Conc 33.2 GM/DL (32-36); Mean Corpuscular Volume 88.8 FL (87-102); Mean Platelet Volume 9.5 FL (9.6-12.0); Monocytes % 2.6 % (1.7-12.7); Neutrophils % 86.8 % (38.7-73.9); Platelet Count 117 T/CUMM (130-400); Red Blood Count 2.85 MC/CUMM (3.8-5.5); Red Cell Distribution Width 15.1 % (9.3-17.3); White Blood Count 12.7 T/CUMM (4-12)
[2019-03-22 05:35] LABS: Alanine Aminotransferase < 9 U/L (16-61); Albumin 1.5 G/DL (3.4-5.0); Alkaline Phosphatase 116 U/L (45-117); Aspartate Amino Transferase 24 U/L (0-37); Blood Urea Nitrogen 13 MG/DL (7-18); Calcium 7.3 MG/DL (8.5-10.1); Glucose 122 MG/DL (74-106); Osmolality,Calculated 275.7 MOS/KG (273-304); Total Protein 3.9 G/DL (6.4-8.3)
[2019-03-22] MEDS: POTASSIUM CHLORIDE RIDER 10 MEQ in PREMIX 1 EACH IV SCH ×2 (07:33→07:34)
[2019-03-22] MEDS: HEPARIN LOCK FLUSH 500 UNIT/5 ML SYRINGE IV SCH ×2 (08:58→20:50)
[2019-03-22] MEDS: CARBIDOPA/LEVODOPA 25-100 MG TABLET PO SCH ×3 (09:00→20:50)
[2019-03-22] MEDS: DUTASTERIDE 0.5 MG CAPSULE PO SCH (09:00)
[2019-03-22] MEDS: PANTOPRAZOLE 40 MG TABLET PO SCH (09:00)
[2019-03-22] MEDS: ASPIRIN EC 81 MG TABLET PO SCH (09:00)
[2019-03-22] MEDS: FLUDROCORTISONE 0.1 MG TABLET PO SCH (09:00)
[2019-03-22] MEDS: MIDODRINE 5 MG TABLET PO SCH ×3 (09:00→20:50)
[2019-03-22] MEDS: DOCUSATE SODIUM 100 MG CAPSULE PO SCH ×2 (09:00→20:49)
[2019-03-22] MEDS: DEXT 5% NACL 0.45% KCL 10 MEQ 10 MEQ/1,000 ML BAG IV SCH ×2 (12:25→22:36)
[2019-03-22] MEDS ORDERED: cefTRIAXone 1,000 MG in SYRINGE 1 EACH IV SCH (16:00)
[2019-03-22] MEDS: MAGNESIUM SULF RIDER 2 GM in PREMIX 1 EACH IV PRN (16:21)
[2019-03-22] MEDS: MAGNESIUM CHLORIDE 64 MG TABLET PO SCH (20:50)
[2019-03-23 06:07] LABS: Alanine Aminotransferase < 6 U/L (16-61); Albumin 1.6 G/DL (3.4-5.0); Alkaline Phosphatase 107 U/L (45-117); Aspartate Amino Transferase 26 U/L (0-37); Blood Urea Nitrogen 8 MG/DL (7-18); Calcium 7.3 MG/DL (8.5-10.1); Glucose 120 MG/DL (74-106); Osmolality,Calculated 266.2 MOS/KG (273-304); Total Protein 3.8 G/DL (6.4-8.3)
[2019-03-23] MEDS: DEXT 5% NACL 0.45% KCL 10 MEQ 10 MEQ/1,000 ML BAG IV SCH ×2 (06:38→14:58)
[2019-03-23 07:04] LABS: Basophils % 0.1 % (0.0-0.8); Eosinophils # 0.1 10*3/uL (0.0-0.87); Eosinophils % 1.9 % (0.00-10.9); Hematocrit 27.4 VOL% (42.0-52.0); Hemoglobin 9.1 GM/DL (14.0-18.0); Immature Granulocytes % 0.7 %; Immature Granulocytes Absolute 0.05 #; Lymphocytes # 1.2 10*3/uL (1.4-4.0); Mean Corpuscular HGB Conc 33.2 GM/DL (32-36); Mean Corpuscular Volume 87.8 FL (87-102); Mean Platelet Volume 10.2 FL (9.6-12.0); Monocytes % 4.7 % (1.7-12.7); Neutrophils % 74.6 % (38.7-73.9); Red Blood Count 3.12 MC/CUMM (3.8-5.5); White Blood Count 6.9 T/CUMM (4-12)
[2019-03-23 07:15] LABS: Platelet Count 33 T/CUMM (130-400)
[2019-03-23 07:36] LABS: Platelet Estimate Decreased
[2019-03-23] MEDS: DOCUSATE SODIUM 100 MG CAPSULE PO SCH ×2 (08:35→21:46)
[2019-03-23] MEDS: MIDODRINE 5 MG TABLET PO SCH ×3 (08:35→21:45)
[2019-03-23] MEDS: PANTOPRAZOLE 40 MG TABLET PO SCH (08:35)
[2019-03-23] MEDS: MAGNESIUM CHLORIDE 64 MG TABLET PO SCH ×2 (08:36→21:46)
[2019-03-23] MEDS: FLUDROCORTISONE 0.1 MG TABLET PO SCH (08:36)
[2019-03-23] MEDS: HEPARIN LOCK FLUSH 500 UNIT/5 ML SYRINGE IV SCH ×2 (08:36→21:47)
[2019-03-23] MEDS: DUTASTERIDE 0.5 MG CAPSULE PO SCH (08:36)
[2019-03-23] MEDS: CARBIDOPA/LEVODOPA 25-100 MG TABLET PO SCH ×3 (08:36→21:46)
[2019-03-23] MEDS: ASPIRIN EC 81 MG TABLET PO SCH (08:36)
[2019-03-23 09:29] LABS: Basophils % 0.2 % (0.0-0.8); Eosinophils # 0.1 10*3/uL (0.0-0.87); Eosinophils % 2.2 % (0.00-10.9); Hematocrit 26.3 VOL% (42.0-52.0); Hemoglobin 8.7 GM/DL (14.0-18.0); Immature Granulocytes % 0.6 %; Immature Granulocytes Absolute 0.04 #; Lymphocytes # 1.3 10*3/uL (1.4-4.0); Lymphocytes % 20.9 % (21.2-54.2); Mean Corpuscular HGB Conc 33.1 GM/DL (32-36); Mean Corpuscular Volume 86.5 FL (87-102); Monocytes % 4.4 % (1.7-12.7); Neutrophils % 71.7 % (38.7-73.9); Red Blood Count 3.04 MC/CUMM (3.8-5.5); Red Cell Distribution Width 14.7 % (9.3-17.3); White Blood Count 6.4 T/CUMM (4-12)
[2019-03-23 09:34] LABS: Platelet Count 106 T/CUMM (130-400)
[2019-03-23] MEDS ORDERED: MYLANTA/LIDO VISC/DIPH 300 ML BOTTLE SWISH/SWAL PRN (11:47)
[2019-03-23] MEDS ORDERED: LOPERAMIDE 2 MG CAPSULE PO PRN (11:53)
[2019-03-23] MEDS: DEXAMETHASONE 4 MG TABLET PO SCH (12:35)
[2019-03-23] MEDS ORDERED: traMADol 50 MG TABLET PO PRN (12:41)
[2019-03-23] MEDS ORDERED: ALUMINUM/MAGNES/SIMETH MAX STR 30 ML UDCUP PO PRN (12:41)
[2019-03-23] MEDS ORDERED: MYLANTA/LIDO VISC 2:1 300 ML BOTTLE SWISH/SPIT PRN (12:41)
[2019-03-23] MEDS ORDERED: diphenhydrAMINE CAP 25 MG CAPSULE PO PRN (12:41)
[2019-03-23] MEDS ORDERED: MYLANTA/LIDO VISC 2:1 300 ML BOTTLE SWISH/SWAL PRN (12:41)
[2019-03-23] MEDS ORDERED: TEMAZEPAM 7.5 MG CAPSULE PO PRN (12:41)
[2019-03-23] MEDS ORDERED: ALPRAZolam 0.25 MG TABLET PO PRN (12:41)
[2019-03-23] MEDS ORDERED: PROMETHAZINE INJ 25 MG in SODIUM CHLORIDE 0.9% 50 ML IV PRN (12:41)
[2019-03-23] MEDS ORDERED: MAGNESIUM HYDROXIDE SUSP 30 ML UDCUP PO PRN (12:41)
[2019-03-23] MEDS ORDERED: guaiFENesin 200 MG/10 ML UDCUP PO PRN (12:41)
[2019-03-23] MEDS: MAGNESIUM SULF RIDER 2 GM in PREMIX 1 EACH IV PRN (15:41)
[2019-03-23] MEDS: SUCRALFATE 1 GM/10 ML UDCUP PO SCH ×2 (15:42→21:46)
[2019-03-24] MEDS: DEXT 5% NACL 0.45% KCL 10 MEQ 10 MEQ/1,000 ML BAG IV SCH ×3 (01:07→09:47)
[2019-03-24 06:15] LABS: Basophils % 0.2 % (0.0-0.8); Eosinophils # 0.1 10*3/uL (0.0-0.87); Eosinophils % 1.9 % (0.00-10.9); Hematocrit 26.3 VOL% (42.0-52.0); Hemoglobin 8.8 GM/DL (14.0-18.0); Immature Granulocytes % 0.7 %; Immature Granulocytes Absolute 0.03 #; Lymphocytes # 1.2 10*3/uL (1.4-4.0); Lymphocytes % 28.2 % (21.2-54.2); Mean Corpuscular HGB Conc 33.5 GM/DL (32-36); Mean Corpuscular Volume 85.9 FL (87-102); Mean Platelet Volume 9.3 FL (9.6-12.0); Monocytes % 5.9 % (1.7-12.7); Neutrophils % 63.1 % (38.7-73.9); Platelet Count 103 T/CUMM (130-400); Red Blood Count 3.06 MC/CUMM (3.8-5.5); Red Cell Distribution Width 14.6 % (9.3-17.3); White Blood Count 4.2 T/CUMM (4-12)
[2019-03-24 06:44] LABS: Albumin 1.6 G/DL (3.4-5.0); Bilirubin,Total 1.5 MG/DL (0.2-1.0); Calcium 7.3 MG/DL (8.5-10.1)
[2019-03-24 07:46] LABS: Anisocytosis Slight; Macrocytosis Slight; Platelet Estimate Decreased
[2019-03-24] MEDS: MIDODRINE 5 MG TABLET PO SCH ×3 (08:32→20:58)
[2019-03-24] MEDS: SUCRALFATE 1 GM/10 ML UDCUP PO SCH ×4 (08:32→20:58)
[2019-03-24] MEDS: FLUDROCORTISONE 0.1 MG TABLET PO SCH (08:32)
[2019-03-24] MEDS: ASPIRIN EC 81 MG TABLET PO SCH (08:32)
[2019-03-24] MEDS: PANTOPRAZOLE 40 MG TABLET PO SCH (08:32)
[2019-03-24] MEDS: DUTASTERIDE 0.5 MG CAPSULE PO SCH (08:32)
[2019-03-24] MEDS: MAGNESIUM CHLORIDE 64 MG TABLET PO SCH ×2 (08:32→20:58)
[2019-03-24] MEDS: DEXAMETHASONE 4 MG TABLET PO SCH (08:33)
[2019-03-24] MEDS: CARBIDOPA/LEVODOPA 25-100 MG TABLET PO SCH ×3 (08:33→20:58)
[2019-03-24] MEDS: DOCUSATE SODIUM 100 MG CAPSULE PO SCH ×2 (08:36→21:02)
[2019-03-24] MEDS: HEPARIN LOCK FLUSH 500 UNIT/5 ML SYRINGE IV SCH ×2 (10:56→20:59)
[2019-03-24] MEDS: POTASSIUM CHLORIDE RIDER 20 MEQ in PREMIX 1 EACH IV PRN ×4 (11:52→22:43)
[2019-03-24] MEDS: VANCOMYCIN 50 MG/ML 60 ML/BOTTLE PO SCH (21:02)
[2019-03-25] MEDS: DEXT 5% NACL 0.45% KCL 10 MEQ 10 MEQ/1,000 ML BAG IV SCH ×3 (01:05→13:28)
[2019-03-25 03:59] LABS: Basophils % 0.2 % (0.0-0.8); Eosinophils # 0.1 10*3/uL (0.0-0.87); Eosinophils % 1.1 % (0.00-10.9); Hematocrit 23.3 VOL% (42.0-52.0); Hemoglobin 7.9 GM/DL (14.0-18.0); Immature Granulocytes % 0.3 %; Immature Granulocytes Absolute 0.02 #; Mean Corpuscular HGB Conc 33.9 GM/DL (32-36); Mean Corpuscular Volume 85.3 FL (87-102); Mean Platelet Volume 9.7 FL (9.6-12.0); Monocytes % 2.5 % (1.7-12.7); NRBC # 0.02 10*3/uL; Neutrophils % 78.9 % (38.7-73.9); Red Blood Count 2.73 MC/CUMM (3.8-5.5); Red Cell Distribution Width 14.6 % (9.3-17.3); White Blood Count 6.1 T/CUMM (4-12)
[2019-03-25 04:05] LABS: Platelet Count 77 T/CUMM (130-400)
[2019-03-25 04:14] LABS: Calcium 7.1 MG/DL (8.5-10.1); Osmolality,Calculated 269.8 MOS/KG (273-304)
[2019-03-25] MEDS: POTASSIUM CHLORIDE RIDER 20 MEQ in PREMIX 1 EACH IV PRN (05:47)
[2019-03-25] MEDS: VANCOMYCIN 50 MG/ML 60 ML/BOTTLE PO SCH ×4 (05:48→23:38)
[2019-03-25] MEDS ORDERED: SODIUM CHLORIDE 0.9% 1,000 ML IV PRN (07:41)
[2019-03-25] MEDS: POTASSIUM CHLORIDE RIDER 10 MEQ in PREMIX 1 EACH IV PRN (09:48)
[2019-03-25] MEDS: FLUDROCORTISONE 0.1 MG TABLET PO SCH (10:12)
[2019-03-25] MEDS: MAGNESIUM CHLORIDE 64 MG TABLET PO SCH ×2 (10:12→21:00)
[2019-03-25] MEDS: SUCRALFATE 1 GM/10 ML UDCUP PO SCH ×4 (10:12→21:00)
[2019-03-25] MEDS: MIDODRINE 5 MG TABLET PO SCH ×3 (10:12→21:00)
[2019-03-25] MEDS: DUTASTERIDE 0.5 MG CAPSULE PO SCH (10:13)
[2019-03-25] MEDS: PANTOPRAZOLE 40 MG TABLET PO SCH (10:13)
[2019-03-25] MEDS: CARBIDOPA/LEVODOPA 25-100 MG TABLET PO SCH ×3 (10:13→21:00)
[2019-03-25] MEDS: DEXAMETHASONE 4 MG TABLET PO SCH (10:13)
[2019-03-25] MEDS: HEPARIN LOCK FLUSH 500 UNIT/5 ML SYRINGE IV SCH ×2 (10:13→22:08)
[2019-03-25] MEDS: ASPIRIN EC 81 MG TABLET PO SCH (10:13)
[2019-03-25] MEDS: DOCUSATE SODIUM 100 MG CAPSULE PO SCH ×2 (10:13→21:00)
[2019-03-26] MEDS: DEXT 5% NACL 0.45% KCL 10 MEQ 10 MEQ/1,000 ML BAG IV SCH (02:09)
[2019-03-26 05:11] LABS: Basophils % 0.3 % (0.0-0.8); Eosinophils # 0.1 10*3/uL (0.0-0.87); Eosinophils % 3.3 % (0.00-10.9); Hematocrit 27.7 VOL% (42.0-52.0); Hemoglobin 9.6 GM/DL (14.0-18.0); Immature Granulocytes % 0.6 %; Immature Granulocytes Absolute 0.02 #; Lymphocytes # 1.3 10*3/uL (1.4-4.0); Lymphocytes % 37.6 % (21.2-54.2); Mean Corpuscular HGB Conc 34.7 GM/DL (32-36); Mean Corpuscular Volume 83.9 FL (87-102); Mean Platelet Volume 9.3 FL (9.6-12.0); Monocytes % 4.1 % (1.7-12.7); Neutrophils % 54.1 % (38.7-73.9); White Blood Count 3.4 T/CUMM (4-12)
[2019-03-26 05:25] LABS: Platelet Count 65 T/CUMM (130-400)
[2019-03-26] MEDS: VANCOMYCIN 50 MG/ML 60 ML/BOTTLE PO SCH ×3 (05:48→17:08)
[2019-03-26 05:51] LABS: Hypochromasia Slight; Platelet Estimate Decreased
[2019-03-26] MEDS: DEXT 5% NACL 0.9% KCL 20 MEQ 20 MEQ/1,000 ML BAG IV SCH ×2 (09:47→20:57)
[2019-03-26] MEDS: POTASSIUM CHLORIDE RIDER 20 MEQ in PREMIX 1 EACH IV PRN (09:48)
[2019-03-26] MEDS: DOCUSATE SODIUM 100 MG CAPSULE PO SCH ×2 (09:49→20:03)
[2019-03-26] MEDS: SUCRALFATE 1 GM/10 ML UDCUP PO SCH ×4 (09:49→20:15)
[2019-03-26] MEDS: DUTASTERIDE 0.5 MG CAPSULE PO SCH (09:49)
[2019-03-26] MEDS: MAGNESIUM CHLORIDE 64 MG TABLET PO SCH ×2 (09:49→20:15)
[2019-03-26] MEDS: CARBIDOPA/LEVODOPA 25-100 MG TABLET PO SCH ×3 (09:49→20:15)
[2019-03-26] MEDS: MIDODRINE 5 MG TABLET PO SCH ×3 (09:49→20:14)
[2019-03-26] MEDS: PANTOPRAZOLE 40 MG TABLET PO SCH (09:49)
[2019-03-26] MEDS: DEXAMETHASONE 4 MG TABLET PO SCH (09:49)
[2019-03-26] MEDS: ASPIRIN EC 81 MG TABLET PO SCH (09:49)
[2019-03-26] MEDS: HEPARIN LOCK FLUSH 500 UNIT/5 ML SYRINGE IV SCH ×2 (09:50→20:15)
[2019-03-26] MEDS: FLUDROCORTISONE 0.1 MG TABLET PO SCH (09:53)
[2019-03-26] MEDS ORDERED: ALPRAZolam 0.25 MG TABLET PO PRN (13:24)
[2019-03-26] MEDS: POTASSIUM CHLORIDE RIDER 10 MEQ in PREMIX 1 EACH IV PRN (14:41)
[2019-03-26] MEDS ORDERED: chlorproMAZINE 25 MG TABLET PO ONE (15:33)
[2019-03-26] MEDS ORDERED: HALOPERIDOL CONCENTRATE 2 MG/ML 15 ML BOTTLE PO SCH (21:00)
[2019-03-27] MEDS: VANCOMYCIN 50 MG/ML 60 ML/BOTTLE PO SCH ×3 (01:12→11:44)
[2019-03-27] MEDS: DEXT 5% NACL 0.9% KCL 20 MEQ 20 MEQ/1,000 ML BAG IV SCH (04:47)
[2019-03-27 05:14] LABS: Basophils % 0.3 % (0.0-0.8); Eosinophils # 0.1 10*3/uL (0.0-0.87); Eosinophils % 3.3 % (0.00-10.9); Hematocrit 27.4 VOL% (42.0-52.0); Hemoglobin 9.2 GM/DL (14.0-18.0); Immature Granulocytes % 0.6 %; Immature Granulocytes Absolute 0.02 #; Lymphocytes # 1.5 10*3/uL (1.4-4.0); Mean Corpuscular HGB Conc 33.6 GM/DL (32-36); Mean Corpuscular Volume 84.6 FL (87-102); Mean Platelet Volume 9.5 FL (9.6-12.0); Monocytes % 5.2 % (1.7-12.7); Neutrophils % 49.6 % (38.7-73.9); Red Blood Count 3.24 MC/CUMM (3.8-5.5); White Blood Count 3.6 T/CUMM (4-12)
[2019-03-27 05:20] LABS: Platelet Count 48 T/CUMM (130-400)
[2019-03-27 05:29] LABS: Albumin 1.7 G/DL (3.4-5.0); Bilirubin,Total 0.8 MG/DL (0.2-1.0); Calcium 7.1 MG/DL (8.5-10.1); Osmolality,Calculated 274.5 MOS/KG (273-304)
[2019-03-27 05:33] LABS: Hypochromasia 1+; Platelet Estimate Decreased
[2019-03-27] MEDS: SUCRALFATE 1 GM/10 ML UDCUP PO SCH ×2 (08:47→11:37)
[2019-03-27] MEDS: MIDODRINE 5 MG TABLET PO SCH (08:48)
[2019-03-27] MEDS: CARBIDOPA/LEVODOPA 25-100 MG TABLET PO SCH (08:48)
[2019-03-27] MEDS: MAGNESIUM CHLORIDE 64 MG TABLET PO SCH (08:48)
[2019-03-27] MEDS: ASPIRIN EC 81 MG TABLET PO SCH (08:48)
[2019-03-27] MEDS: DEXAMETHASONE 4 MG TABLET PO SCH (08:49)
[2019-03-27] MEDS: POTASSIUM CHLORIDE RIDER 20 MEQ in PREMIX 1 EACH IV PRN (08:49)
[2019-03-27] MEDS: FLUDROCORTISONE 0.1 MG TABLET PO SCH (08:49)
[2019-03-27] MEDS: DUTASTERIDE 0.5 MG CAPSULE PO SCH (08:49)
[2019-03-27] MEDS ORDERED: PANTOPRAZOLE 40 MG TABLET PO SCH (09:00)
[2019-03-27] MEDS: POTASSIUM CHLORIDE RIDER 10 MEQ in PREMIX 1 EACH IV SCH ×3 (09:02→11:36)
[2019-03-27] MEDS: DOCUSATE SODIUM 100 MG CAPSULE PO SCH (09:30)
[2019-03-27] MEDS: HEPARIN LOCK FLUSH 500 UNIT/5 ML SYRINGE IV SCH (09:30)
[2019-03-27 12:11] VITALS: BP 92/64
[2019-03-27] MEDS ORDERED: chlorproMAZINE 25 MG TABLET PO PRN (13:28)
== END 2019-03-27 15:30 | disposition hospice, home (50) | DRG 641 ==
LOC: EDBD → EDUNIT# → N.EDINP 19:46 → N.ED 19:46 → N.2E 23:49 → N.4E 03-20 11:41
PROVIDERS: ADMIT Family Medicine; ATTEND Family Medicine